=== PATIENT | male | born 1995 | race Caucasian/White ===

== ENCOUNTER 2018-07-29 20:14 | Emergency (ER) | payer MEDICAID ==
--- NOTE | 2018-07-29 20:24 | ERPHSYRPT ---
- History of Present Illness Time Seen by Provider: 07/29/18 20:24 Source: patient, family Patient Subjective Stated Complaint: pT C/O CP X 3 WEEKS WITH INTERMITTENT SOB FROM COUGHING SPELLS. PT COUGH CLEAR PRODUCTIVE. DENIES FEVER AT HOME. Triage Nursing Assessment: PINK/HOT/DRY, RESP EASY, A&OX4, NO DISTRESS NOTED AT THIS TIME, EKG DONE. WHEEZING ON AUSCULTATION WORSE ON THE RIGHT. Physician History: 22 y/o white male nonsmoker but exposed to coal dust daily, presents with intermittent coughing and sob for 3 weeks. has mild central cp with cought. pts cough is productive. pt notices wheezing. Timing/Duration: week(s) (3), intermittent Activities at Onset: none Severity of Dyspnea-Max: mild Severity of Dyspnea-Current: mild Possible Cause: no prior episodes Associated Symptoms: cough, chest pain/discomfort (with cough only), wheezing, No hemoptysis, No calf pain, No muscle spasms hands, No painful breathing Allergies/Adverse Reactions: shrimp Allergy (Severe, Verified 07/29/18 20:16) Hx Tetanus, Diphtheria Vaccination/Date Given: No Hx Influenza Vaccination/Date Given: No Hx Pneumococcal Vaccination/Date Given: No Immunizations Up to Date: No - Review of Systems Constitutional: Fever Eyes: No Symptoms Ears, Nose, & Throat: No Symptoms Respiratory: Cough, Wheezing Cardiac: No Symptoms Abdominal/Gastrointestinal: No Symptoms Genitourinary Symptoms: No Symptoms Musculoskeletal: No Symptoms Skin: No Symptoms Neurological: No Symptoms Psychological: No Symptoms Endocrine: No Symptoms Hematologic/Lymphatic: No Symptoms Immunological/Allergic: No Symptoms All Other Systems: Reviewed and Negative - Past Medical History Pertinent Past Medical History: No Neurological History: No Pertinent History ENT History: No Pertinent History Cardiac History: No Pertinent History Respiratory History: No Pertinent History Endocrine Medical History: No Pertinent History Musculoskeletal History: No Pertinent History GI Medical History: No Pertinent History History: No Pertinent History Psycho-Social History: No Pertinent History Male Reproductive Disorders: No Pertinent History - Past Surgical History Past Surgical History: Yes Neuro Surgical History: No Pertinent History Cardiac: No Pertinent History Respiratory: No Pertinent History Gastrointestinal: No Pertinent History Genitourinary: No Pertinent History Musculoskeletal: No Pertinent History Male Surgical History: No Pertinent History Other Surgical History: CYST ON THYROID - Social History Smoking Status: Former smoker Exposure to second hand smoke: Yes Drug Use: marijuana Patient Lives Alone: No - Nursing Vital Signs Nursing Vital Signs: Initial Vital Signs Temperature 100.5 F 07/29/18 20:15 Pulse Rate 98 H 07/29/18 20:15 Respiratory Rate 20 07/29/18 20:15 Blood Pressure 149/94 07/29/18 20:15 O2 Sat by Pulse Oximetry 99 07/29/18 20:15 Pain Scale Pain Intensity 2 - Physical Exam General Appearance: no apparent distress, alert, anxiety Eye Exam: PERRL/EOMI Ears, Nose, Throat Exam: hearing grossly normal, normal ENT inspection, normal pharynx Neck Exam: normal inspection, non-tender, supple, full range of motion Respiratory Exam: airway intact, wheezing (mild left greater than right), No respiratory distress Cardiovascular/Chest Exam: normal heart sounds, regular rate/rhythm Abdominal/Gastrointestinal Exam: soft, normal bowel sounds, No tenderness, No guarding, No rebound Extremity Exam: non-tender, normal range of motion, normal inspection Neurologic Exam: alert, oriented x 3, cooperative, manager client service II-XII nml as tested, normal mood/affect, nml cerebellar function, nml station & gait Skin Exam: normal color, warm, dry Lymphatic Exam: No adenopathy SpO2 Interpretation: normal SpO2: 99 O2 Delivery: Room Air - Course Nursing assessment & vital signs reviewed: Yes EKG Interpreted by Me: RATE (95), Sinus Rhythm, NORMAL AXIS, NORMAL INTERVALS, NORMAL QRS, Other (no comparison ekg. ) Ordered Tests: Active Orders 24 hr Category Date Time Status CHEST 1 VIEW (PORTABLE) Stat Exams 07/29/18 20:51 Ordered Respiratory Therapy Assessment DAILY RT 07/29/18 20:55 Completed Medication Summary Discontinued Medications Generic Name Dose Route Start Last Admin Trade Name Freq PRN Reason Stop Dose Admin Albuterol Sulfate 2.5 mg 07/29/18 20:54 07/29/18 20:56 Proventil 2.5 Mg/3 Ml Neb IH 07/29/18 20:55 2.5 mg STAT ONE Administration Albuterol Sulfate Confirm 07/29/18 20:53 Proventil 2.5 Mg/3 Ml Neb Administered 07/29/18 20:54 Dose 2.5 mg IH .STK-MED ONE - Progress Progress: improved, re-examined Air Movement: good Progress Note: 07/29/18 21:39 cxr-no acute process. sx worsening over 3 weeks and fever present, will add antibx. Blood Culture(s) Obtained: No Antibiotics given: Yes Counseled pt/family regarding: diagnosis, need for follow-up, rad results - Departure Departure Disposition: Home Clinical Impression: Bronchitis Condition: Stable Critical Care Time: No Additional Instructions: drink plenty of fluids. follow up with a primary doctor for further management. Prescriptions: Albuterol 8 gm Mdi Hfa [Ventolin Hfa MDI] 8 gm IH Q4H #1 hfa.aer.ad Azithromycin 250 mg [Zithromax 250 MG TABLET] 250 mg PO ZPACK #6 tablet Prednisone 10 mg [Deltasone 10 mg] 10 mg PO TID #9 tablet
[2018-07-29] MEDS ORDERED: PROVENTIL 2.5 MG/3 ML NEB IH ONE ×2 (20:53→20:54)
[2018-07-29] MEDS ORDERED: Rocephin 1000 MG INJ IM ONE (21:42)
[2018-07-29] MEDS ORDERED: solu-MEDROL 125 MG IM ONE (21:43)
[2018-07-29] MEDS ORDERED: ROCEPHIN 1 Gm-D5w 50 ml Bag** 1 G/50 ML IVPB IV ONE (21:57)
[2018-07-29] MEDS ORDERED: solu-MEDROL 125 MG ONE (21:57)
[2018-07-29 23:30] VITALS: BP 116/86; PULSE 82; O2SAT 95
--- NOTE | 2018-07-30 08:59 | XRAY ---
Indication: Fever and cough. Comparison: June 18, 2018. Portable chest less inflated again demonstrating normal heart, lungs, and bony thorax.
== END 2018-07-29 23:50 | disposition home or self-care (01) ==
LOC: ED 20:14
DX: J40 Bronchitis, not specified as acute or chronic (principal)
CPT/HCPCS: 36000; 71045; 94640; 96372; 99284; J0696; J2930; J7609; A9270-GY

== ENCOUNTER 2018-08-22 13:53 | Emergency (ER) | payer MEDICAID ==
--- NOTE | 2018-08-22 14:09 | ERPHSYRPT ---
- History of Present Illness Time Seen by Provider: 08/22/18 14:07 Source: patient Exam Limitations: no limitations Patient Subjective Stated Complaint: Pt states "I was going down the slide at a pool yesterday and I rolled my ankle and I am not sure if I broke it or not." Triage Nursing Assessment: Pt presented to the ed alert and oriented X 3, skin pwd. Pt ambulates with an upright steady gait, able to speak in clear full sentences. PT in no apparent respiratory distress. Physician History: Pt states "I was going down the slide at a pool yesterday and I rolled my ankle and I am not sure if I broke it or not." c/o pain in right foot and ankle Method of Injury: twisted Occurred: just prior to arrival Quality: constant Severity of Pain-Max: mild Severity of Pain-Current: mild Lower Extremities Pain: foot: right, ankle: right Modifying Factors: Improves With: cold therapy Associated Symptoms: unable to bear weight Allergies/Adverse Reactions: shrimp Allergy (Severe, Verified 07/29/18 20:16) Hx Tetanus, Diphtheria Vaccination/Date Given: Yes Hx Influenza Vaccination/Date Given: No Hx Pneumococcal Vaccination/Date Given: No Immunizations Up to Date: Yes - Review of Systems Constitutional: No Symptoms Eyes: No Symptoms Ears, Nose, & Throat: No Symptoms Respiratory: No Symptoms Cardiac: No Symptoms Abdominal/Gastrointestinal: No Symptoms Musculoskeletal: Joint Pain, Joint Swelling, No Deformity - Past Medical History Pertinent Past Medical History: No Neurological History: No Pertinent History ENT History: No Pertinent History Cardiac History: No Pertinent History Respiratory History: No Pertinent History Endocrine Medical History: No Pertinent History Musculoskeletal History: No Pertinent History GI Medical History: No Pertinent History History: No Pertinent History Psycho-Social History: No Pertinent History Male Reproductive Disorders: No Pertinent History - Past Surgical History Past Surgical History: Yes Neuro Surgical History: No Pertinent History Cardiac: No Pertinent History Respiratory: No Pertinent History Gastrointestinal: No Pertinent History Genitourinary: No Pertinent History Musculoskeletal: No Pertinent History Male Surgical History: No Pertinent History Other Surgical History: CYST ON THYROID - Social History Smoking Status: Former smoker Exposure to second hand smoke: Yes Drug Use: marijuana Patient Lives Alone: No - Nursing Vital Signs Nursing Vital Signs: Initial Vital Signs Temperature 98.2 F 08/22/18 13:57 Pulse Rate 104 H 06/22/19 13:57 Respiratory Rate 16 08/22/18 13:57 Blood Pressure 157/83 08/22/18 13:57 O2 Sat by Pulse Oximetry 95 08/22/18 13:57 Pain Scale Pain Intensity 5 - Physical Exam General Appearance: no apparent distress Eyes, Ears, Nose, Throat Exam: normal ENT inspection Neck Exam: normal inspection Cardiovascular/Respiratory Exam: chest non-tender Gastrointestinal/Abdominal Exam: non-tender Back Exam: normal inspection Ankle Exam: right ankle: limited range of motion, soft tissue tenderness, swelling Foot Exam: right foot: limited range of motion, soft tissue tenderness SpO2: 95 - Course Nursing assessment & vital signs reviewed: Yes - Radiology Exams Foot X-ray Interpretation: Reviewed by me, Negative, No Fracture, Nml Alignment Ankle X-ray Interpretation: Reviewed by me, Negative, No Fracture, Nml Alignment Ordered Tests: Active Orders 24 hr Category Date Time Status ANKLE (3 VIEWS) Stat Exams 08/22/18 14:09 Ordered FOOT (MINIMUM 3 VIEWS) Stat Exams 08/22/18 14:10 Ordered - Progress Progress: improved, pain not gone completely Counseled pt/family regarding: diagnosis, need for follow-up, rad results - Departure Departure Disposition: Home Clinical Impression: Injury of ankle and foot Qualifiers: Encounter type: initial encounter Laterality: right Qualified Code(s): S99.911A - Unspecified injury of right ankle, initial encounter; S99.921A - Unspecified injury of right foot, initial encounter Condition: Stable Critical Care Time: No Referrals: Provider,Unknown [Primary Care Provider] - Instructions: Metatarsalgia (DC), Foot Sprain (DC), Ankle Strengthening Exercises Additional Instructions: SPRAINS/STRAINS/CONTUSIONS 1. Rest the affected area as much as possible for the next few days. 2. Apply ice to the affected area for 20-30 minutes at a time, several times a day. 3. If you receive an elastic wrap, wear it only while awake for comfort and support. Re-wrap the elastic wrap if it feels too tight or too loose. 4. If swelling is present, elevate the affected part above the level of the heart for at least 2 to 3 days. 5. Use splints, slings, or crutches as instructed. 6. Watch for severe swelling, coldness, numbness, and discoloration of the fingers and toes. See your family physician or return to the emergency department if any of these are noted. Discharge/Care Plan ETHEL ORANTES was seen on 08/22/18 in the Emergency Room. The patient was counseled regarding Diagnosis,Lab results, Imaging studies, need for follow up and when to return to the Emergency Room. Prescriptions given: Discharge Note I have spoken with the patient and/or caregivers. I have explained the patient' s condition, diagnosis and treatment plan based on the information available to me at this time. I have answered the patient's and/or caregiver's questions and addressed any concerns. The patient and/or caregivers have as good understanding of the patient's diagnosis, condition and treatment plan as can be expected at this point. The vital signs have been stable. The patient's condition is stable and appropriate for discharge from the emergency department. The patient will pursue further outpatient evaluation with the primary care physician or other designated or consulting physician as outlined in the discharge instructions. The patient and/or caregivers are agreeable to this plan of care and follow-up instructions have been explained in detail. The patient and/or caregivers have received these instruction. The patient/and or caregivers are aware that any significant change in condition or worsening of symptoms should prompt an immediate return to this or the closest emergency department or call 911. Prescriptions: Naproxen 375 mg [Naprosyn 375 mg] 375 mg PO Q8H #30 tablet
[2018-08-22 15:00] VITALS: BP 154/94; PULSE 97
[2018-08-22 15:02] VITALS: O2SAT 95
--- NOTE | 2018-08-22 22:09 | XRAY ---
Indication: Pain following injury. Comparison: None 3 nonweightbearing views of the right foot obtained. No bony, articular, or soft tissue abnormalities.
--- NOTE | 2018-08-22 22:09 | XRAY ---
Indication: Pain following injury. Comparison: None 3 views of the right ankle obtained. No bony, articular, or soft tissue abnormalities.
== END 2018-08-22 15:09 | disposition home or self-care (01) ==
LOC: ED 13:53
DX: S99.911A Unspecified injury of right ankle, initial encounter (principal); S99.921A Unspecified injury of right foot, initial encounter; X50.0XXA Overexertion from strenuous movement or load, initial encounter; X50.9XXA Other and unspecified overexertion or strenuous movements or postures, initial encounter; Y93.11 Activity, swimming; Y92.34 Swimming pool (public) as the place of occurrence of the external cause
CPT/HCPCS: 73610; 73630; 99283

== ENCOUNTER 2018-10-01 23:18 | Emergency (ER) | payer SELFPAY ==
[2018-10-02 00:04] LABS: Basophil (Absolute #) 0.09 (0-0.4); Eosinophil % 5.6 % (0.00-5.0); Granulocyte Absolute (ANC) 3.86 (1.4-6.9); Granulocytes % 43.3 % (36.0-66.0); Hematocrit 43.9 % (42-50); Lymphocyte (Absolute #) 3.87 (1.0-4.6); Lymphocytes % 43.4 % (24.0-44.0); Mean Cell Volume 89.4 fl (78-100); Mean Corpuscular Hemoglobin 32.6 pg (26-32); Mean Corpuscular Hgb Concent. 36.4 g/dl (32-36); Mean Platelet Volume 9.5 fl (6-9.5); Monocytes % 6.7 % (0.0-12.0); Platelet Count 210 K/mm3 (150-450); Red Blood Count 4.91 M/mm3 (4.1-5.6); Red Cell Distribution Width 12.5 % (11.5-14.0); White Blood Count 8.9 K/mm3 (4.0-10.5)
--- NOTE | 2018-10-02 00:06 | ERPHSYRPT ---
- History of Present Illness Time Seen by Provider: 10/02/18 00:03 Source: patient Exam Limitations: no limitations Patient Subjective Stated Complaint: PT IS ALERT AND ORIENTED. PT IS AMBULATORY WITH A STEADY GAIT. PT COMES IN WITH C/O SUICIDAL THOUGHTS. PT DENIES HAVING A PLAN. PT STATES THAT HIS GIRLFRIENDS FAMILY DOES NOT LIKE HIM AND HAS BEEN PUTTING HIM DOWN. PT STATES THAT THIS HAS BEEN GOING ON FOR 7 MONTHS BUT HE HAS NOT FELT SUICIDAL UNTIL TONIGHT. PT HAS ATTEMPTED SUICIDE TWICE IN THE PAST THE LAST TIME BEING 6 YEARS AGO. PT STATES THAT HE PUT A SHOTGUN TO HIS HEAD ONCE AND THEN TOOK A BUNCH OF PILLS THE OTHER TIME. PT IS PLEASANT AND COOPERATIVE. PT STATES HE DID DRINK 3 BEERS TONIGHT. DENIES ANY RECREATIONAL DRUG USE. Triage Nursing Assessment: SEE ABOVE Physician History: 23-year-old white male who arrives with complaint of suicidal ideation is brought by the police apparently been having suicidal ideation for 7 months he states he does not have a real plan. He is actually requesting to go to [facility]. Patient does have a history of holding a gun to his head in the past also a history of taking an overdose of pills. Past medical history includes depression past surgical history includes or so surgery on the left hand he states he punched a tree. Social history includes 3 beers denies illicit drug use. Timing/Duration: other (suicidal ideation for 7 months occurring today as well) Severity: moderate Modifying Factors: Improves With: nothing Associated Symptoms: denies symptoms Allergies/Adverse Reactions: shrimp Allergy (Severe, Verified 07/29/18 20:16) Home Medications: Hydrocodone/Acetaminophen [Hydrocodone-Acetamin 7.5-325] 2 tablet PO Q6H PRN PRN 10/01/18 [History] Hx Tetanus, Diphtheria Vaccination/Date Given: Yes (2016) Hx Influenza Vaccination/Date Given: No Hx Pneumococcal Vaccination/Date Given: No Immunizations Up to Date: Yes - Review of Systems Constitutional: No Fever, No Chills Eyes: No Symptoms Ears, Nose, & Throat: No Symptoms Respiratory: No Cough, No Dyspnea Cardiac: No Chest Pain, No Edema, No Syncope Abdominal/Gastrointestinal: No Abdominal Pain, No Nausea, No Vomiting, No Diarrhea Genitourinary Symptoms: No Dysuria Musculoskeletal: Other (patient with recent OR IF left handcast in place) Skin: No Rash Neurological: No Dizziness, No Focal Weakness, No Sensory Changes Psychological: Suicidal Ideations, Other (occasional alcohol use) Endocrine: No Symptoms All Other Systems: Reviewed and Negative - Past Medical History Pertinent Past Medical History: No Neurological History: No Pertinent History ENT History: No Pertinent History Cardiac History: No Pertinent History Respiratory History: No Pertinent History Endocrine Medical History: No Pertinent History Musculoskeletal History: No Pertinent History GI Medical History: No Pertinent History History: No Pertinent History Psycho-Social History: No Pertinent History Male Reproductive Disorders: No Pertinent History - Past Surgical History Past Surgical History: Yes Neuro Surgical History: No Pertinent History Cardiac: No Pertinent History Respiratory: No Pertinent History Gastrointestinal: No Pertinent History Genitourinary: No Pertinent History Musculoskeletal: Orthopedic Surgery Male Surgical History: No Pertinent History Other Surgical History: CYST ON THYROID, ORTHO SURGERY ON LEFT HAND. - Social History Smoking Status: Light tobacco smoker Exposure to second hand smoke: Yes Drug Use: none Patient Lives Alone: No - Nursing Vital Signs Nursing Vital Signs: Initial Vital Signs Temperature 98.4 F 10/01/18 23:28 Pulse Rate 98 H 10/01/18 23:28 Respiratory Rate 18 10/01/18 23:28 Blood Pressure 135/84 10/01/18 23:28 O2 Sat by Pulse Oximetry 97 10/01/18 23:28 Pain Scale Pain Intensity 0 - Physical Exam General Appearance: no apparent distress, alert Eye Exam: PERRL/EOMI, eyes nml inspection Ears, Nose, Throat Exam: normal ENT inspection, TMs normal, pharynx normal, moist mucous membranes Neck Exam: normal inspection, non-tender, supple, full range of motion Respiratory Exam: normal breath sounds, lungs clear, No respiratory distress Cardiovascular Exam: regular rate/rhythm, normal heart sounds, normal peripheral pulses, capillary refill <2 sec Gastrointestinal/Abdomen Exam: soft, normal bowel sounds, No tenderness, No mass Back Exam: normal inspection, normal range of motion, No CVA tenderness, No vertebral tenderness Extremity Exam: normal inspection, normal range of motion, pelvis stable, other (splint in place left hand) Neurologic Exam: alert, oriented x 3, cooperative, habitat conservation planner II-XII nml as tested, normal mood/affect, nml cerebellar function, nml station & gait, sensation nml, No motor deficits Skin Exam: normal color, warm, dry, No rash Lymphatic Exam: No adenopathy SpO2 Interpretation: normal (97%) SpO2: 97 - Course Nursing assessment & vital signs reviewed: Yes EKG Interpreted by Me: RATE (85bpm), Sinus Rhythm, Other (EKG: Sinus rhythm, 85 beats per minute, axis S1/Q.III pattern, no acute ST or T wave changes, normal EKG) Ordered Tests: Active Orders 24 hr Category Date Time Status Clean Catch Urine Specimen STAT Care 10/01/18 23:41 Active EKG-ER Only STAT Care 10/01/18 23:42 Active IV Insertion STAT Care 10/02/18 01:00 Active CBC W DIFF Stat Lab 10/01/18 23:55 Completed CMP Stat Lab 10/01/18 23:55 Completed ETHYL ALCOHOL Stat Lab 10/01/18 23:55 Completed ETHYL ALCOHOL Stat Lab 10/02/18 02:18 Completed ETHYL ALCOHOL Stat Lab 10/02/18 03:56 Completed Medication Summary Discontinued Medications Generic Name Dose Route Start Last Admin Trade Name Freq PRN Reason Stop Dose Admin Sodium Chloride 1,000 mls @ 999 mls/hr 10/02/18 01:00 10/02/18 01:15 Sodium Chloride 0.9% 1000 Ml IV 10/02/18 02:00 999 mls/hr .Q1H1M STA Administration Sodium Chloride Confirm 10/02/18 01:12 Sodium Chloride 0.9% 1000 Ml Administered 10/02/18 01:13 Dose 1,000 mls @ ud .ROUTE .STK-MED ONE Sodium Chloride Confirm 10/02/18 02:38 Sodium Chloride 0.9% 1000 Ml Administered 10/02/18 02:39 Dose 1,000 mls @ ud .ROUTE .STK-MED ONE Sodium Chloride 1,000 mls @ 999 mls/hr 10/02/18 02:43 10/02/18 02:44 Sodium Chloride 0.9% 1000 Ml IV 10/02/18 03:43 999 mls/hr .Q1H1M STA Administration Lab/Rad Data: Laboratory Result Diagrams 10/01/18 23:55 10/01/18 23:55 Laboratory Results 10/02/18 10/02/18 10/01/18 Range/Units 03:56 02:18 23:55 WBC (4.0-10.5) K/mm3 RBC (4.1-5.6) M/mm3 Hgb (12.5-18.0) gm/dl Hct (42-50) % MCV (78-100) fl MCH (26-32) pg MCHC (32-36) g/dl RDW (11.5-14.0) % Plt Count (150-450) K/mm3 MPV (6-9.5) fl Gran % (36.0-66.0) % Eos # (Auto) (0-0.5) Absolute Lymphs (auto) (1.0-4.6) Absolute Monos (auto) (0.0-1.3) Lymphocytes % (24.0-44.0) % Monocytes % (0.0-12.0) % Eosinophils % (0.00-5.0) % Basophils % (0.0-0.4) % Absolute Granulocytes (1.4-6.9) Basophils # (0-0.4) Sodium (137-145) mmol/L Potassium (3.5-5.1) mmol/L Chloride (98-107) mmol/L Carbon Dioxide (22-30) mmol/L Anion Gap (5-15) MEQ/L BUN (9-20) mg/dL Creatinine (0.66-1.25) mg/dL Estimated GFR ML/MIN Glucose (74-106) mg/dL Calcium (8.4-10.2) mg/dL Total Bilirubin (0.2-1.3) mg/dL AST (17-59) U/L ALT (0-50) U/L Alkaline Phosphatase (38-126) U/L Serum Total Protein (6.3-8.2) g/dL Albumin (3.5-5.0) g/dL Urine Opiates Level (NEGATIVE) Ur Methadone (NEGATIVE) Urine Barbiturates (NEGATIVE) Ur Phencyclidine (PCP) (NEGATIVE) Urine Amphetamine (NEGATIVE) U Benzodiazepine Level (NEGATIVE) Urine Cocaine (NEGATIVE) Urine Marijuana (THC) (NEGATIVE) Ethyl Alcohol 54 H 85 H 129 H (0-10) mg/dL 10/01/18 10/01/18 10/01/18 Range/Units 23:55 23:55 00:25 WBC 8.9 (4.0-10.5) K/mm3 RBC 4.91 (4.1-5.6) M/mm3 Hgb 16.0 (12.5-18.0) gm/dl Hct 43.9 (42-50) % MCV 89.4 (78-100) fl MCH 32.6 H (26-32) pg MCHC 36.4 H (32-36) g/dl RDW 12.5 (11.5-14.0) % Plt Count 210 (150-450) K/mm3 MPV 9.5 (6-9.5) fl Gran % 43.3 (36.0-66.0) % Eos # (Auto) 0.50 (0-0.5) Absolute Lymphs (auto) 3.87 (1.0-4.6) Absolute Monos (auto) 0.60 (0.0-1.3) Lymphocytes % 43.4 (24.0-44.0) % Monocytes % 6.7 (0.0-12.0) % Eosinophils % 5.6 H (0.00-5.0) % Basophils % 1.0 (0.0-0.4) % Absolute Granulocytes 3.86 (1.4-6.9) Basophils # 0.09 (0-0.4) Sodium 141 (137-145) mmol/L Potassium 3.8 (3.5-5.1) mmol/L Chloride 110 H (98-107) mmol/L Carbon Dioxide 21 L (22-30) mmol/L Anion Gap 14.1 (5-15) MEQ/L BUN 12 (9-20) mg/dL Creatinine 1.02 (0.66-1.25) mg/dL Estimated GFR > 60.0 ML/MIN Glucose 90 (74-106) mg/dL Calcium 9.4 (8.4-10.2) mg/dL Total Bilirubin 0.30 (0.2-1.3) mg/dL AST 38 (17-59) U/L ALT 35 (0-50) U/L Alkaline Phosphatase 79 (38-126) U/L Serum Total Protein 7.5 (6.3-8.2) g/dL Albumin 4.4 (3.5-5.0) g/dL Urine Opiates Level NEGATIVE (NEGATIVE) Ur Methadone NEGATIVE (NEGATIVE) Urine Barbiturates NEGATIVE (NEGATIVE) Ur Phencyclidine (PCP) NEGATIVE (NEGATIVE) Urine Amphetamine NEGATIVE (NEGATIVE) U Benzodiazepine Level NEGATIVE (NEGATIVE) Urine Cocaine NEGATIVE (NEGATIVE) Urine Marijuana (THC) NEGATIVE (NEGATIVE) Ethyl Alcohol (0-10) mg/dL - Progress Progress: improved Progress Note: 10/02/18 05:55 Patient was evaluated by [facility] through Tele-psych. Patient is to be released he is to followup with [facility] in the next 48 hours call for an appointment. He is to contact his family physician for medications. - Departure Departure Disposition: Home Clinical Impression: Suicidal ideation Condition: Fair Critical Care Time: No Referrals: Provider,Unknown [Primary Care Provider] - Additional Instructions: Return home. Followup with [facility] in the next 48 hours. Contact your family physician to arrange medications and evaluation. Return for acute distress or for severe symptoms or for any problems.
[2018-10-02 00:13] LABS: ALBUMIN 4.4 g/dL (3.5-5.0); ALKALINE PHOSPHATASE 79 U/L (38-126); ANION GAP 14.1 MEQ/L (5-15); BLOOD UREA NITROGEN 12 mg/dL (9-20); CHLORIDE 110 mmol/L (98-107); Calcium 9.4 mg/dL (8.4-10.2); Carbon Dioxide 21 mmol/L (22-30); Creatinine 1 1.02 mg/dL (0.66-1.25); Glucose 90 mg/dL (74-106); Potassium 3.8 mmol/L (3.5-5.1); SGOT/AST 38 U/L (17-59); SGPT/ALT 35 U/L (0-50); SODIUM 141 mmol/L (137-145); Total Protein 7.5 g/dL (6.3-8.2)
[2018-10-02 00:43] LABS: Amphetamine,Urine NEGATIVE (NEGATIVE); Barbiturate,Urine NEGATIVE (NEGATIVE); Benzodiazepine,Urine NEGATIVE (NEGATIVE); Cocaine,Urine NEGATIVE (NEGATIVE); Methadone,Urine NEGATIVE (NEGATIVE); Opiate,Urine NEGATIVE (NEGATIVE); PCP,Urine NEGATIVE (NEGATIVE); THC,Urine NEGATIVE (NEGATIVE)
[2018-10-02] MEDS ORDERED: Sodium Chloride 0.9% 1000 ML 1,000 ML ONE ×2 (01:12→02:38)
[2018-10-02] MEDS: Sodium Chloride 0.9% 1000 ML 1,000 ML IV STA ×2 (01:15→02:44)
[2018-10-02 04:33] VITALS: BP 111/62; PULSE 73; O2SAT 97
== END 2018-10-02 06:17 | disposition home or self-care (01) ==
LOC: ED 23:18
DX: R45.851 Suicidal ideations (principal)
CPT/HCPCS: 36000; 36415; 80053; 80307; 85025; 93005; 96360; 96361; 99284; G0480